=== PATIENT | male | born 1945 | race Caucasian/White ===

== ENCOUNTER → 2018-03-02 | Outpatient (CLI) | payer OTHER ==
--- NOTE | 2018-03-02 13:42 | Diagnostic Imaging Report ---
PROCEDURE: CT CHEST WITHOUT CONTRAST CT scan of the chest WITHOUT intravenous contrast, using standard protocol. TECHNIQUE: The chest was scanned utilizing a multidetector helical scanner from the apex to the level of the adrenal glands. No IV contrast was administered per physician request. Coronal and sagittal multiplanar reformations were obtained. COMPARISON: None. INDICATIONS: INTERSTITIAL LUNG DISEASE FINDINGS: Lines/tubes: Postoperative changes median sternotomy wires and coronary artery bypass. Lungs and Airways: Mild scarring in the lung bases. The lungs and airways are otherwise normal with no focal abnormality demonstrated. Pleura: The pleural spaces are clear. Heart and mediastinum: The thyroid gland is normal. No significant mediastinal, hilar or axillary lymphadenopathy is seen. The heart and pericardium are within normal limits. Severe vessel coronary artery calcifications. Soft tissues: Normal. Abdomen: Limited views of the upper abdomen show no abnormality within the visualized liver, pancreas, or kidneys. The adrenal glands are normal. Right upper quadrant cholecystectomy clips. Spleen is enlarged measuring 14.1 cm in AP dimension. Bones: The visualized bony thorax is within normal limits. IMPRESSION: Unremarkable CT chest. No evidence of interstitial lung disease. Dictated by: Keith Amin M.D. on 03/02/2018 at 13:44 Electronically approved by: Keith Amin M.D. on 03/02/2018 at 13:44
== END ==
LOC: CT 12:25
PROVIDERS: ATTEND Internal Medicine Critical Care Medicine
DX: J84.9 Interstitial pulmonary disease, unspecified (principal)
CPT/HCPCS: 71250